=== PATIENT | male | born 1990 | race Caucasian/White ===

== ENCOUNTER 2020-03-13 00:05 | Emergency (ER) | payer MEDICAID ==
[~2020-03-13] VITALS: Ht 175.3 cm; Wt 87.0 kg
[2020-03-13] MEDS ORDERED: BACITRACIN ZINC OINT UDPKT TOP ONE (01:30)
[2020-03-13] MEDS ORDERED: ACETAMINOPHEN 325MG TABLET PO ONE (01:30)
[2020-03-13] MEDS ORDERED: LIDOCAINE HCL/PF 1% 10 MG/ML 5ML VIAL IJ ONE (01:30)
[2020-03-13 02:10] VITALS: BP 120/70
== END 2020-03-13 02:12 | disposition home or self-care (01) ==
LOC: ER 00:06
DX: N45.4 Abscess of epididymis or testis (principal)
CPT/HCPCS: 10060; 99283; J3490